=== PATIENT | female | born 1935 | race Caucasian/White ===

== ENCOUNTER 2017-08-02 17:15 | Inpatient (IN) | payer OTHER ==
[~2017-08-02] VITALS: Ht 152.4 cm; Wt 68.0 kg
[~2017-08-02 17:15] MED LIST: AMLO2.5T PO; APPLTAB PO; ASPEC325 PO; ATOR10TA88 PO; BNV150 PO; CETI10TA84 PO; CLB/200 PO; CLTP PO; CYCL10TA6 PO; DOCU-94 PO; DVN80125 PO; FLUO20CA35 PO; MAGN400T6 PO; MULT-506 PO; NXM/40 PO; OMEG10007 PO
[2017-08-02] MEDS ORDERED: SODIUM CHLORIDE 0.9% 1000ML 1,000 ML IV STA (17:38)
--- NOTE | 2017-08-02 17:45 | EMERGENCY ROOM VISIT NOTE ---
History Report prepared by Gera: El Hayden Under the Supervision of: Dr. Christina Read M.D. 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 She rates her pain a 9.5/10 in severity. At this time, the patient was at a family picnic when she accidentally tripped on a chair and fell onto a picnic table bench. She struck her left shoulder, left thigh, and her posterior head. She denies any loss of consciousness or weakness. Her pain is exacerbated with movement. She is currently on Coumadin. 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 Review of Systems See HPI for pertinent positives & negatives. A total of 10 systems reviewed and were otherwise negative. Past Medical & Surgical Medical Problems: (1) Asthma, Unspecified (2) Benign hypertension (3) Depression (4) Dyslipidemia (5) Gastroesophageal reflux disease (6) Generalized osteoarthritis (7) Hematoma (8) Rheumatoid Arthritis Surgical Problems: (1) History of cholecystectomy (2) s/p appendectomy (3) s/p back surgery (4) s/p bilateral carpal tunnel surgery (5) s/p bilateral rotator cuff surgeries (6) s/p bladder surgery (7) s/p cardiac catheterization (8) s/p cholecystectomy (9) s/p hysterectomy (10) s/p left TKA (11) s/p resection ovarian cyst (12) s/p revision right TKA (13) s/p right shoulder arthroplasty (14) s/p right TKA (15) s/p tonsillectomy Family History Omitted secondary to the patient's age. Social History Smoking Status: Never Smoker Smokeless Tobacco Use: No Alcohol Use: none Marital Status: Housing Status: lives with family Occupation Status: retired Current/Historical Medications Scheduled Amlodipine (Norvasc), 2.5 MG PO QAM Apple Cider Vinegar (Apple Cider Vinegar), 500 MG PO DAILY Brimonidine Tartrate (Brimonidine Tartrate), 1 DROP OPL BID Cetirizine (Zyrtec), 10 MG PO PRN Esomeprazole Magnesium (Nexium), 40 MG PO DAILY Fish Oil (Bryant-3), 2 CAPSULES PO DAILY Fluoxetine (Prozac), 20 MG PO DAILY Ibandronate Sodium (Boniva), 150 MG PO MONTHLY Latanoprost (Latanoprost), 1 DROP OPB HS Magnesium Oxide (Mag-Ox), 400 MG PO DAILY Multivitamin (Multivitamin), 1 TAB PO DAILY Turmeric (Curcuma Longa) (Turmeric), 500 MG PO BID Valsartan/Hctz (Diovan Hct 160MG/25MG), 1 TAB PO QAM Warfarin Sodium (Coumadin), 5 MG PO UD Allergies Coded Allergies: Meperidine (Verified Adverse Reaction, Mild, NAUSEA AND VOMITING, 08/02/17) No Known Allergies (Verified , 09/07/03) Physical Exam Vital Signs Date Time Temp Pulse Resp B/P (MAP) Pulse Ox O2 Delivery O2 Flow Rate FiO2 08/02/17 17:55 62 08/02/17 17:21 36.6 69 18 134/81 96 Room Air Physical Exam Vital signs reviewed. General: Well-appearing 81 yo female, in no significant distress. HEENT: No scleral icterus, PERRLA, neck supple. Atraumatic. Cardiovascular: Regular rate and rhythm, no extra sounds. Pulmonary: Clear to auscultation bilaterally, normal work of breathing. Abdomen: Soft, nontender, nondistended, positive bowel sounds. Musculoskeletal: Large hematoma to the left quadriceps region approximately 10 cm. Pain with ROM of the LUE. Full ROM of bilateral hips. Able to bend both knees. N/V intact distally to the bilateral LE's. Mild abrasion to the right knee. Cervical, thoracic and lumbar spine are palpated, nontender, no step-off or deformity appreciated. Neurologic: Patient awake alert and oriented x 3, full strength in all 4 extremities. Skin: Warm, dry, no rash. No significant abrasions/laceration. Medical Decision & Procedures ER Provider Diagnostic Interpretation: Radiology results as stated below per my review and radiologist interpretation: LEFT SHOULDER MIN 2 VIEWS ROUTINE HISTORY: 81 years-old Female L shoulder pain acute left shoulder pain status post fall. Initial exam. COMPARISON: Left shoulder radiographs 08/05/2013 TECHNIQUE: 3 views of the left shoulder. FINDINGS: Remote bone fragment inferior to the glenoid fossa is again seen, 2.9 x 0.9 cm suggesting a remote humeral fracture. Reverse total shoulder arthroplasty redemonstrated with chronic remodeling about the left shoulder. No evidence of hardware complication or periprosthetic fracture. No malalignment. Imaged lung schneider appear clear. IMPRESSION: 1. No acute fracture or dislocation. 2. Reverse total shoulder arthroplasty without complication. 3. Bone fragment inferior to the glenoid is unchanged from 08/05/2013 suggesting remote humeral fracture fragment. The above report was generated using voice recognition software. It may contain grammatical, syntax or spelling errors. Electronically signed by: Francisco Javier Mendoza M.D. 08/02/2017 7:34 PM Dictated Date/Time: 08/02/2017 7:31 PM LEFT FEMUR 2 VIEWS ROUTINE, LEFT HIP UNILATERAL 2 VIEWS HISTORY: 81 years-old Female L hematoma on Thigh hematoma of the left thigh. Acute left thigh soft tissue swelling status post fall. COMPARISON: CT left lower extremity of same day TECHNIQUE: 2 views of the left femur and 2 views of the left hip FINDINGS: HIP: Moderate left hip osteoarthritis. Remote left pubic ring fracture. No acute fracture or dislocation. FEMUR: Moderate osteoarthritis of the left hip. Enthesophyte noted superior to the greater tuberosity. Remote fracture deformity of the left pubic ring. Left hip arthroplasty with patellar resurfacing noted. No hardware complication is identified. The bones are mildly demineralized. IMPRESSION: 1. No acute fracture or dislocation of the left hip or femur. 2. Remote left pelvic ring fracture. 3. Left knee total joint arthroplasty noted without complication. The above report was generated using voice recognition software. It may contain grammatical, syntax or spelling errors. Electronically signed by: Francisco Javier Mendoza M.D. 08/02/2017 7:31 PM Dictated Date/Time: 08/02/2017 7:28 PM HEAD WITHOUT CONTRAST (CT) CLINICAL HISTORY: 81 years-old Female with CHI. Acute fall with left lower extremity pain. Acute trauma. Initial exam. TECHNIQUE: Multiple axial CT images of the head were obtained without contrast. A dose lowering technique was utilized adhering to the principles of ALARA. CT DOSE: 537.48 mGy.cm COMPARISON: None. FINDINGS: No acute intracranial hemorrhage, midline shift, mass, large territorial ischemia or abnormal extra-axial collection. There is mild atrophy with ex vacuo ventriculomegaly. Cerebral vascular calcifications are seen at the level of the skull base. The calvarium is intact. The paranasal sinuses, mastoid air cells, and middle ear cavities are clear. IMPRESSION: No acute intracranial abnormality. The above report was generated using voice recognition software. It may contain grammatical, syntax or spelling errors. Electronically signed by: Francisco Javier Mendoza M.D. 08/02/2017 7:01 PM Dictated Date/Time: 08/02/2017 6:58 PM LEFT FEMUR 2 VIEWS ROUTINE, LEFT HIP UNILATERAL 2 VIEWS HISTORY: 81 years-old Female L hematoma on Thigh hematoma of the left thigh. Acute left thigh soft tissue swelling status post fall. COMPARISON: CT left lower extremity of same day TECHNIQUE: 2 views of the left femur and 2 views of the left hip FINDINGS: HIP: Moderate left hip osteoarthritis. Remote left pubic ring fracture. No acute fracture or dislocation. FEMUR: Moderate osteoarthritis of the left hip. Enthesophyte noted superior to the greater tuberosity. Remote fracture deformity of the left pubic ring. Left hip arthroplasty with patellar resurfacing noted. No hardware complication is identified. The bones are mildly demineralized. IMPRESSION: 1. No acute fracture or dislocation of the left hip or femur. 2. Remote left pelvic ring fracture. 3. Left knee total joint arthroplasty noted without complication. The above report was generated using voice recognition software. It may contain grammatical, syntax or spelling errors. Electronically signed by: Francisco Javier Mendoza M.D. 08/02/2017 7:31 PM Dictated Date/Time: 08/02/2017 7:28 PM CHEST ONE VIEW PORTABLE HISTORY: 81 years-old Female fall acute left shoulder and left lower extremity pain status post fall. Initial study. COMPARISON: Chest radiograph 01/29/2012 TECHNIQUE: Portable upright AP view of the chest FINDINGS: Cardiac silhouette is upper limits of normal. No pneumothorax, pleural effusion or focal airspace consolidation. No overt pulmonary edema. 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 Multilevel general changes about the spine. No acute bony normality. Remote left-sided rib fractures are seen. IMPRESSION: No acute cardiopulmonary process. The above report was generated using voice recognition software. It may contain grammatical, syntax or spelling errors. Electronically signed by: Francisco Javier Mendoza M.D. 08/02/2017 7:36 PM Dictated Date/Time: 08/02/2017 7:34 PM LEFT LOWER EXTREMITY WITH HISTORY: 81 years-old Female L thigh hematoma, active bleed? INR 1.7 acute fall with left lower extremity injury. Hematoma of the left thigh with concern for active extravasation. Initial exam. COMPARISON: None available. TECHNIQUE: Multiple axial CT images of the left lower extremity were obtained utilizing 92 mL Optiray 320. A dose lowering technique was used consistent with the principals of MINI. FINDINGS: There is a dense heterogeneous collection of the anterolateral left mid thigh, 6.9 x 3.5 x 9.2 cm suggesting hematoma within the deep subcutaneous tissues causing mass effect upon the adjacent rectus femoris and lateral rectus musculature. Along the superior margin of this collection there is a 1.7 x 0.6 cm hyperattenuating area of contrast compatible with active extravasation (nicely seen on image 168 of the axial series). Moderate degree of subcutaneous edema and stranding is seen surrounding the hematoma. No intramuscular extension is identified. The left common and superficial femoral and popliteal arteries appear patent as imaged. Sigmoid diverticulosis is seen. Probable phleboliths are noted within left hemipelvis. Nonspecific likely reactive mild left inguinal adenopathy is seen. Intramedullary femoral stem from knee arthroplasty noted. There is evidence of prior patellar resurfacing. The left femur appears intact without acute fracture or dislocation. There is a suggested remote left superior pubic ramus fracture. There is mild spurring of the greater tuberosity. There is moderate degenerative changes of the left hip. IMPRESSION: 1. Large complex heterogeneous collection of the subcutaneous anterolateral mid left thigh, 6.9 x 3.5 x 9.2 cm suggests hematoma with focus of active extravasation seen along its superior margin. Moderate amount of adjacent subcutaneous edema surrounds the hematoma. No intramuscular extension. 2. No acute fracture or dislocation. 3. Moderate left hip osteoarthritis. 4. Sigmoid diverticulosis incidentally noted. The above report was generated using voice recognition software. It may contain grammatical, syntax or spelling errors. Electronically signed by: Francisco Javier Mendoza M.D. 08/02/2017 7:09 PM Dictated Date/Time: 08/02/2017 7:01 PM Laboratory Results 08/02/17 17:53 Red Blood Count 3.98, Mean Corpuscular Volume 92.5, Mean Corpuscular Hemoglobin 32.7, Mean Corpuscular Hemoglobin Concent 35.3, Mean Platelet Volume 9.9, Neutrophils (%) (Auto) 83.9, Lymphocytes (%) (Auto) 10.1, Monocytes (%) (Auto) 4.7, Eosinophils (%) (Auto) 0.9, Basophils (%) (Auto) 0.2, Neutrophils # (Auto) 7.14, Lymphocytes # (Auto) 0.86, Monocytes # (Auto) 0.40, Eosinophils # (Auto) 0.08, Basophils # (Auto) 0.02 08/02/17 17:53 Test 08/02/17 17:53 08/02/17 19:40 White Blood Count 8.52 K/uL (4.8-10.8) Red Blood Count 3.98 M/uL (4.2-5.4) Hemoglobin 13.0 g/dL (12.0-16.0) Hematocrit 36.8 % (37-47) Mean Corpuscular Volume 92.5 fL (80-100) Mean Corpuscular Hemoglobin 32.7 pg (25-34) Mean Corpuscular Hemoglobin Concent 35.3 g/dl (32-36) Platelet Count 256 K/uL (130-400) Mean Platelet Volume 9.9 fL (7.4-10.4) Neutrophils (%) (Auto) 83.9 % Lymphocytes (%) (Auto) 10.1 % Monocytes (%) (Auto) 4.7 % Eosinophils (%) (Auto) 0.9 % Basophils (%) (Auto) 0.2 % Neutrophils # (Auto) 7.14 K/uL (1.4-6.5) Lymphocytes # (Auto) 0.86 K/uL (1.2-3.4) Monocytes # (Auto) 0.40 K/uL (0.11-0.59) Eosinophils # (Auto) 0.08 K/uL (0-0.5) Basophils # (Auto) 0.02 K/uL (0-0.2) RDW Standard Deviation 48.2 fL (36.4-46.3) RDW Coefficient of Variation 14.1 % (11.5-14.5) Immature Granulocyte % (Auto) 0.2 % Immature Granulocyte # (Auto) 0.02 K/uL (0.00-0.02) Prothrombin Time 19.1 SECONDS (9.0-12.0) Prothromb Time International Ratio 1.7 (0.9-1.1) Activated Partial Thromboplast Time 31.8 SECONDS (21.0-31.0) Partial Thromboplastin Ratio 1.2 Anion Gap 6.0 mmol/L (3-11) Est Creatinine Clear Calc Drug Dose 51.6 ml/min Estimated GFR () 86.5 Estimated GFR (Non- 74.6 BUN/Creatinine Ratio 26.6 (10-20) Calcium Level 9.3 mg/dl (8.5-10.1) Magnesium Level 2.2 mg/dl (1.8-2.4) Total Bilirubin 0.3 mg/dl (0.2-1) Direct Bilirubin < 0.1 mg/dl (0-0.2) Aspartate Amino Transf (AST/SGOT) 22 U/L (15-37) Alanine Aminotransferase (ALT/SGPT) 19 U/L (12-78) Alkaline Phosphatase 38 U/L (45-117) Total Protein 6.7 gm/dl (6.4-8.2) Albumin 3.6 gm/dl (3.4-5.0) Thyroid Stimulating Hormone (TSH) 0.848 uIu/ml (0.300-4.500) Urine Color YELLOW Urine Appearance CLEAR (CLEAR) Urine pH 7.0 (4.5-7.5) Urine Specific [employer] 1.026 (1.000-1.030) Urine Protein NEG (NEG) Urine Glucose (UA) NEG (NEG) Urine Ketones NEG (NEG) Urine Occult Blood NEG (NEG) Urine Nitrite NEG (NEG) Urine Bilirubin NEG (NEG) Urine Urobilinogen NEG (NEG) Urine Leukocyte Esterase NEG (NEG) Laboratory results per my review. Medications Administered Medications (Trade) Dose Ordered Sig/Marc Route Start Time Stop Time Status Last Admin Dose Admin Sodium Chloride 1,000 ml @ 150 mls/hr [id number] STAT IV 08/02/17 17:38 08/02/17 20:57 DC 08/02/17 18:06 150 MLS/HR Morphine Sulfate (MoRPHine SULFATE INJ) 2 mg NOW STAT IV 08/02/17 20:00 08/02/17 20:01 DC 08/02/17 20:07 2 MG Ondansetron HCl (Zofran Inj) 4 mg NOW STAT IV 08/02/17 20:00 08/02/17 20:01 DC 08/02/17 20:07 4 MG Phytonadione 2.5 mg/Sodium Chloride 50.25 ml @ 100.5 mls/ hr ONE ONCE IV 08/02/17 20:15 08/02/17 20:44 DC 08/02/17 20:51 100.5 MLS/HR ECG Indication: other (Trauma) Rate (beats per minute): 65 Rhythm: normal sinus Findings: no acute ischemic change, no ectopy ED Course 1730: Past medical records reviewed. The patient was evaluated in room C1. A complete history and physical examination was performed. 1737: Ordered Sodium Chloride 1000 ml @ 150 mls/hr IV 1933: I spoke with Dr. Arrieta of Vascular Surgery at this time. We discussed the patient's case. He recommended placing a compression dressing and being treated further as an inpatient. 1999: Ordered Zofran Inj 4 mg IV, Morphine Sulfate 2 mg IV 2001: Upon reevaluation, the patient is resting comfortably. I discussed laboratory and radiographic results with her. She verbalized agreement of the treatment plan. I spoke with Dr. Yuan of the [facility]. The patient will be evaluated for further management and care. 2015: Ordered Phytonadione 2.5 mg/Sodium Chloride 50.25 ml @ 100.5 mls/hr IV Medical Decision DDx: Intracranial injury, cervical spine injury, intrathoracic injury, intra- abdominal injury, musculoskeletal injury. This patient was evaluated and appeared to be in no significant distress. IV access was obtained and laboratory work was drawn. The patient was medicated with IV morphine and Zofran. Ice was applied to the left thigh hematoma. Patient was hydrated with normal saline solution. X-rays were obtained and reveal no acute bony injuries or dislocations. CT scan of the left thigh was performed and reveals a hematoma with active extravasation. Patient's H&H is stable with an INR of 1.7. She was given vitamin K 2.[address] scan of the head reveals no evidence of acute intracranial abnormality. Given the active bleeding, Dr. Arrieta of vascular surgery was consulted. He has recommended a compression dressing. Given her age and anticoagulation, the hospitalist service was consulted for further management. The patient and family felt comfortable with this plan and agree. Head Trauma GCS Score: 15 Medication Reconcilliation Current Medication List: was personally reviewed by me Blood Pressure Screening Patient's blood pressure: Normal blood pressure Blood pressure disposition: Did not require urgent referral Consults Time Called: 1929 Consulting Physician: Dr. Arrieta - Vascular Surgery Returned Call: 1933 We discussed the patient's case. He recommended a compression dressing and further treatment as an inpatient. Additional Consults: Time Called: 1999 Consulted Physician: Dr. Lissy Daigle Hospitalist Returned Call: 2001 Additional Comments: I reviewed the patient's case with him. He will evaluate the patient for further management. Impression Primary Impression: Hematoma of left thigh Additional Impressions: Extravasation of blood Anticoagulated Scribe Attestation The scribe's documentation has been prepared under my direction and personally reviewed by me in its entirety. I confirm that the note above accurately reflects all work, treatment, procedures, and medical decision making performed by me. Departure Information Dispostion Being Evaluated By Hospitalist Referrals No Doctor, Assigned (PCP) Patient Instructions My [facility] Problem Qualifiers
[2017-08-02] MEDS ORDERED: TURM1CAP4 PO (18:06)
[2017-08-02] MEDS ORDERED: IBAN150T PO (18:06)
[2017-08-02] MEDS ORDERED: XLTOPS OPB (18:06)
[2017-08-02] MEDS ORDERED: BRIM0.159 OPL (18:06)
[2017-08-02] MEDS ORDERED: WARF5TAB90 PO (18:06)
[2017-08-02] MEDS ORDERED: VALS160T60 PO (18:06)
[2017-08-02 18:07] LABS: BASO % 0.2 %; BASO ABS # 0.02 K/uL (0-0.2); COMPLETE YES; EOS % 0.9 %; HEMATOCRIT 36.8 % (37-47); IG% 0.2 %; LYMPH % 10.1 %; LYMPH ABS # 0.86 K/uL (1.2-3.4); MEAN CELL VOLUME 92.5 fL (80-100); MEAN CORPUSCULAR HEMOGLOBIN 32.7 pg (25-34); MEAN CORPUSCULAR HGB CONC 35.3 g/dl (32-36); MEAN PLATELET VOLUME 9.9 fL (7.4-10.4); MONO % 4.7 %; NEUT % 83.9 %; PLATELET COUNT 256 K/uL (130-400); RED BLOOD COUNT 3.98 M/uL (4.2-5.4); WHITE BLOOD COUNT 8.52 K/uL (4.8-10.8)
[2017-08-02 18:15] LABS: INR 1.7 (0.9-1.1); PARTIAL THROMBOPLASTIN RATIO 1.2; PROTHROMBIN TIME (PATIENT) 19.1 SECONDS (9.0-12.0)
[2017-08-02 18:30] LABS: ALKALINE PHOSPHATASE 38 U/L (45-117); ALT/SGPT 19 U/L (12-78); AST/SGOT 22 U/L (15-37); BLOOD UREA NITROGEN 20 mg/dl (7-18); BUN/CREATININE RATIO 26.6 (10-20); CALCIUM 9.3 mg/dl (8.5-10.1); CARBON DIOXIDE 30 mmol/L (21-32); CHLORIDE 99 mmol/L (98-107); CREATININE 0.76 mg/dl (0.60-1.20); GLUCOSE 112 mg/dl (70-99); POTASSIUM 3.8 mmol/L (3.5-5.1); SODIUM 135 mmol/L (136-145)
[2017-08-02] MEDS ORDERED: OPTIRAY 320 IV PRN (19:00)
--- NOTE | 2017-08-02 19:02 | DIAGNOSTIC IMAGING REPORT ---
HEAD WITHOUT CONTRAST (CT) CLINICAL HISTORY: 81 years-old Female with CHI. Acute fall with left lower extremity pain. Acute trauma. Initial exam. TECHNIQUE: Multiple axial CT images of the head were obtained without contrast. A dose lowering technique was utilized adhering to the principles of ALARA. CT DOSE: 537.48 mGy.cm COMPARISON: None. FINDINGS: No acute intracranial hemorrhage, midline shift, mass, large territorial ischemia or abnormal extra-axial collection. There is mild atrophy with ex vacuo ventriculomegaly. Cerebral vascular calcifications are seen at the level of the skull base. The calvarium is intact. The paranasal sinuses, mastoid air cells, and middle ear cavities are clear. IMPRESSION: No acute intracranial abnormality. The above report was generated using voice recognition software. It may contain grammatical, syntax or spelling errors. Electronically signed by: Francisco Javier Mendoza M.D. 08/02/2017 7:01 PM Dictated Date/Time: 08/02/2017 6:58 PM
--- NOTE | 2017-08-02 19:10 | DIAGNOSTIC IMAGING REPORT ---
LEFT LOWER EXTREMITY WITH HISTORY: 81 years-old Female L thigh hematoma, active bleed? INR 1.7 acute fall with left lower extremity injury. Hematoma of the left thigh with concern for active extravasation. Initial exam. COMPARISON: None available. TECHNIQUE: Multiple axial CT images of the left lower extremity were obtained utilizing 92 mL Optiray 320. A dose lowering technique was used consistent with the principals of MINI. FINDINGS: There is a dense heterogeneous collection of the anterolateral left mid thigh, 6.9 x 3.5 x 9.2 cm suggesting hematoma within the deep subcutaneous tissues causing mass effect upon the adjacent rectus femoris and lateral rectus musculature. Along the superior margin of this collection there is a 1.7 x 0.6 cm hyperattenuating area of contrast compatible with active extravasation (nicely seen on image 168 of the axial series). Moderate degree of subcutaneous edema and stranding is seen surrounding the hematoma. No intramuscular extension is identified. The left common and superficial femoral and popliteal arteries appear patent as imaged. Sigmoid diverticulosis is seen. Probable phleboliths are noted within left hemipelvis. Nonspecific likely reactive mild left inguinal adenopathy is seen. Intramedullary femoral stem from knee arthroplasty noted. There is evidence of prior patellar resurfacing. The left femur appears intact without acute fracture or dislocation. There is a suggested remote left superior pubic ramus fracture. There is mild spurring of the greater tuberosity. There is moderate degenerative changes of the left hip. IMPRESSION: 1. Large complex heterogeneous collection of the subcutaneous anterolateral mid left thigh, 6.9 x 3.5 x 9.2 cm suggests hematoma with focus of active extravasation seen along its superior margin. Moderate amount of adjacent subcutaneous edema surrounds the hematoma. No intramuscular extension. 2. No acute fracture or dislocation. 3. Moderate left hip osteoarthritis. 4. Sigmoid diverticulosis incidentally noted. The above report was generated using voice recognition software. It may contain grammatical, syntax or spelling errors. Electronically signed by: Francisco Javier Mendoza M.D. 08/02/2017 7:09 PM Dictated Date/Time: 08/02/2017 7:01 PM
--- NOTE | 2017-08-02 19:32 | DIAGNOSTIC IMAGING REPORT ---
LEFT FEMUR 2 VIEWS ROUTINE, LEFT HIP UNILATERAL 2 VIEWS HISTORY: 81 years-old Female L hematoma on Thigh hematoma of the left thigh. Acute left thigh soft tissue swelling status post fall. COMPARISON: CT left lower extremity of same day TECHNIQUE: 2 views of the left femur and 2 views of the left hip FINDINGS: HIP: Moderate left hip osteoarthritis. Remote left pubic ring fracture. No acute fracture or dislocation. FEMUR: Moderate osteoarthritis of the left hip. Enthesophyte noted superior to the greater tuberosity. Remote fracture deformity of the left pubic ring. Left hip arthroplasty with patellar resurfacing noted. No hardware complication is identified. The bones are mildly demineralized. IMPRESSION: 1. No acute fracture or dislocation of the left hip or femur. 2. Remote left pelvic ring fracture. 3. Left knee total joint arthroplasty noted without complication. The above report was generated using voice recognition software. It may contain grammatical, syntax or spelling errors. Electronically signed by: Francisco Javier Mendoza M.D. 08/02/2017 7:31 PM Dictated Date/Time: 08/02/2017 7:28 PM
--- NOTE | 2017-08-02 19:35 | DIAGNOSTIC IMAGING REPORT ---
LEFT SHOULDER MIN 2 VIEWS ROUTINE HISTORY: 81 years-old Female L shoulder pain acute left shoulder pain status post fall. Initial exam. COMPARISON: Left shoulder radiographs 08/05/2013 TECHNIQUE: 3 views of the left shoulder. FINDINGS: Remote bone fragment inferior to the glenoid fossa is again seen, 2.9 x 0.9 cm suggesting a remote humeral fracture. Reverse total shoulder arthroplasty redemonstrated with chronic remodeling about the left shoulder. No evidence of hardware complication or periprosthetic fracture. No malalignment. Imaged lung schneider appear clear. IMPRESSION: 1. No acute fracture or dislocation. 2. Reverse total shoulder arthroplasty without complication. 3. Bone fragment inferior to the glenoid is unchanged from 08/05/2013 suggesting remote humeral fracture fragment. The above report was generated using voice recognition software. It may contain grammatical, syntax or spelling errors. Electronically signed by: Francisco Javier Mendoza M.D. 08/02/2017 7:34 PM Dictated Date/Time: 08/02/2017 7:31 PM
--- NOTE | 2017-08-02 19:37 | DIAGNOSTIC IMAGING REPORT ---
CHEST ONE VIEW PORTABLE HISTORY: 81 years-old Female fall acute left shoulder and left lower extremity pain status post fall. Initial study. COMPARISON: Chest radiograph 01/29/2012 TECHNIQUE: Portable upright AP view of the chest FINDINGS: Cardiac silhouette is upper limits of normal. No pneumothorax, pleural effusion or focal airspace consolidation. No overt pulmonary edema. 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 Multilevel general changes about the spine. No acute bony normality. Remote left-sided rib fractures are seen. IMPRESSION: No acute cardiopulmonary process. The above report was generated using voice recognition software. It may contain grammatical, syntax or spelling errors. Electronically signed by: Francisco Javier Mendoza M.D. 08/02/2017 7:36 PM Dictated Date/Time: 08/02/2017 7:34 PM
[2017-08-02 19:51] LABS: MANUAL MICROSCOPIC REQUIRED? NO; REVIEW REQ? NO; URINE APPEARANCE CLEAR (CLEAR); URINE BILIRUBIN NEG (NEG); URINE COLOR YELLOW; URINE NITRITE NEG (NEG); URINE SPECIFIC GRAVITY 1.026 (1.000-1.030); UROBILINOGEN NEG (NEG); ZZUR CULT IF INDIC CLEAN CATCH NO
[2017-08-02] MEDS ORDERED: ONDANSETRON INJ 2 MG/ML 2 ML VIAL IV STA (20:00)
[2017-08-02] MEDS ORDERED: MoRPHine SULFATE 2 MG/ML CARP IV STA (20:00)
[2017-08-02] MEDS ORDERED: PHYTONADIONE INJ 2.5 MG in SODIUM CHLORIDE 0.9% 50ML 50 ML IV ONE (20:15)
[2017-08-02 20:39] LABS: MAGNESIUM 2.2 mg/dl (1.8-2.4); THYROID STIMULATING HORMONE 0.848 uIu/ml (0.300-4.500)
[2017-08-02] MEDS ORDERED: ONDANSETRON INJ 2 MG/ML 2 ML VIAL IV PRN (21:00)
[2017-08-02] MEDS ORDERED: HYDROmorphone INJ 0.5 MG/0.5 ML SYR IV PRN (21:00)
[2017-08-02] MEDS ORDERED: ACETAMINOPHEN 325 MG TAB PO PRN (21:00)
[2017-08-02] MEDS: BRIMONIDINE TARTRATE-P 0.15% 5 ML BTL OPL SCH (21:00)
[2017-08-02 21:30] VITALS: BP 167/91; PULSE 64; TEMP 36.5; O2SAT 97; Ht 152.4 cm; Wt 68.0 kg
[2017-08-02 21:31] LABS: HEMATOCRIT 33.6 % (37-47)
[2017-08-02] MEDS: LATANOPROST 0.005% OP SOLN 2.5 ML BTL OPB SCH (22:17)
[2017-08-02] MEDS: TRAMADOL HCL 50 MG TAB PO PRN (22:21)
[2017-08-02 23:18] VITALS: BP 138/83; PULSE 59; TEMP 36.4; O2SAT 97
--- NOTE | 2017-08-02 23:39 | HISTORY & PHYSICAL EXAMINATION ---
DATE OF ADMISSION: 08/02/2017 PRIMARY CARE PHYSICIAN: Amber Villa PA-C, [facility] [place]. CHIEF COMPLAINT: Fall, left leg pain. HISTORY OF PRESENT ILLNESS: History obtained from patient and records. Medical history significant for paroxysmal atrial fibrillation, on Coumadin, hypertension, hyperlipidemia, GERD, arthritis. Recent confinement under Orthopedics service last 02/2012 for a left shoulder surgery. Today, the patient was at a family picnic, had a mechanical fall landing on her left side. Achy, left shoulder pain and left leg pain painful swelling. Some posterior head trauma. No loss of consciousness. As per family, the patient known to fall at home if she moves too fast. Brought to the Emergency Room. Patient received vitamin K in the ER. MEDICAL HISTORY: As above. 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 Kevin Aguilar) SURGERIES: She has had orthopedic procedures, hysterectomy, repair of bladder and vagina, tonsillectomy, adenoidectomy, back surgery, cholecystectomy. HOME MEDICATIONS: Include amlodipine, Coumadin, fluoxetine, valsartan, ibandronate, esomeprazole, brimonidine, turmeric, acetaminophen, multivitamins, apple cider, latanoprost, cetirizine. ALLERGIES: No known drug allergies. FAMILY HISTORY: There is a family history of carcinoid tumor, heart disease, SLE, diabetes, breast cancer. PERSONAL AND SOCIAL HISTORY: Nonsmoker, no chronic intake of alcoholic beverages. 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 Lives with her . REVIEW OF SYSTEMS: As per HPI, all other ROS negative. PHYSICAL EXAMINATION: VITAL SIGNS: Blood pressure was noted to be 134/85, pulse 86, RR 18, temperature 36.6, sats 96% on room air. GENERAL: Pleasant, no respiratory distress. SKIN: Normal color. HEENT: [place] palpebral conjunctivae. Dry mucosa. NECK: No JVD. Supple. CHEST: Decreased breath sounds. HEART: Regular rate and rhythm. ABDOMEN: Soft. EXTREMITIES: Tenderness on the left upper thigh; note of compressive dressing; Left shoulder ROM limited by pain NEUROLOGIC: No gross focality. LABORATORY DATA: Hemoglobin was noted to be 13, hematocrit 36.8, white cell count 8.5, platelets noted to be 256. Sodium noted to be 135, potassium 3.8, chloride 99, CO2 of 33, BUN 20, creatinine 0.7, glucose 112. INR was noted to be 1.7. L Shoulder x-ray, no acute fracture or dislocation. Reverse total shoulder arthroscopy done without complication. Unchanged bone fragment adhered to glenoid from 08/05/2013. CT head, no acute pathology. Chest x-ray, no acute cardiopulmonary process. Lower extremity CT, dense collection anterolateral left mid thigh, 6.9 x 3.5 x 9 cm hematoma within deep subcutaneous tissue causing mass effect upon adjacent rectus femoris musculature. Moderate degree of subcutaneous stranding. No intramuscular extension noted; focus of active extravasation along its superior margin. ASSESSMENT: 1. Traumatic hematoma, left thigh. Currently hemodynamically stable. History of ambulatory dysfunction. 2. Traumatic left shoulder pain 3. Hypertension. Stable 4. Paroxysmal atrial fibrillation, normal sinus rhythm, on Coumadin. PLAN: GMF appropriate to hold Coumadin for now. Serial H&H, transfuse packed RBC if hemoglobin less than 7 and or symptomatic anemia Orthopedics consult RE L thigh swelling, hematoma, left shoulder pain. (Patient known to Dr. Soliman.) PT/OT eval. Fall precautions. DVT prophylaxis, SCDs, RE hematoma left lower extremity. Full code. Patient's daughter requesting for updates from providers, Miss Alicia Fuentes at [phone]. [facility]
[2017-08-03] MEDS: OXYCODONE/ACETAMINOPHEN 5-325 TAB PO PRN ×3 (01:13→16:41)
[2017-08-03 05:48] LABS: BASO % 0.7 %; BASO ABS # 0.03 K/uL (0-0.2); COMPLETE YES; EOS % 2.4 %; HEMATOCRIT 33.4 % (37-47); IG% 0.2 %; LYMPH % 18.2 %; LYMPH ABS # 0.83 K/uL (1.2-3.4); MEAN CELL VOLUME 92.3 fL (80-100); MEAN CORPUSCULAR HEMOGLOBIN 30.4 pg (25-34); MEAN CORPUSCULAR HGB CONC 32.9 g/dl (32-36); MEAN PLATELET VOLUME 10.1 fL (7.4-10.4); MONO % 8.6 %; NEUT % 69.9 %; PLATELET COUNT 221 K/uL (130-400); RED BLOOD COUNT 3.62 M/uL (4.2-5.4); WHITE BLOOD COUNT 4.56 K/uL (4.8-10.8)
[2017-08-03 05:58] LABS: INR 1.3 (0.9-1.1); PROTHROMBIN TIME (PATIENT) 14.6 SECONDS (9.0-12.0)
[2017-08-03 06:16] LABS: BUN/CREATININE RATIO 31.3 (10-20); CALCIUM 8.1 mg/dl (8.5-10.1); CREATININE 0.51 mg/dl (0.60-1.20); POTASSIUM 3.6 mmol/L (3.5-5.1)
[2017-08-03] MEDS: TRAMADOL HCL 50 MG TAB PO PRN ×2 (06:39→21:29)
[2017-08-03 07:41] VITALS: BP 116/63; PULSE 65; TEMP 36.5; O2SAT 96
[2017-08-03] MEDS ORDERED: CETIRIZINE HCL 10 MG TAB PO PRN (09:00)
[2017-08-03] MEDS: BRIMONIDINE TARTRATE-P 0.15% 5 ML BTL OPL SCH ×2 (09:13→21:26)
[2017-08-03] MEDS: FLUOXETINE HCL 20 MG CAP PO SCH (09:14)
[2017-08-03] MEDS: VALSARTAN 80 MG TAB PO SCH (09:15)
[2017-08-03] MEDS: AMLODIPINE BESYLATE 5 MG TAB PO SCH (09:15)
[2017-08-03] MEDS: MULTIVITAMIN TAB PO SCH (09:16)
[2017-08-03] MEDS: PANTOprazole SOD 40 MG TAB PO SCH (09:16)
--- NOTE | 2017-08-03 09:57 | Orthopedic Progress Note ---
Orthopedic Progress Note Date of Service Aug 03, 2017. Subjective Additional Notes: 81-year-old white female known to our practice who is status post left reverse total shoulder arthroplasty by Dr. Soliman in 2011. Patient states that she was out and their picnic [place] over the holiday. She was sitting at a picnic table when she saw a few of her granddaughters. She states that she rest to go see them ended up losing her balance and falling onto the picnic table itself and then to the ground. She had immediate pain in her left shoulder and also in her left thigh she was brought to the emergency room here at [facility] was seen by the staff. She was noted as having a hematoma of the left anterior thigh and was having difficulty with range of motion of her left shoulder. Patient is on Coumadin for atrial fibrillation and INR was 1.7. She was admitted to the medicine service for further evaluation. The patient states that she did not have loss of consciousness and denies shortness of breath chest pain or lightheadedness prior to or after the fall. Currently she is lying in bed and appears comfortable. PMH - significant for paroxysmal atrial fibrillation, on Coumadin, hypertension, hyperlipidemia, reflux, arthritis. PSH - She has had right and left TSA's, Left TKA with revision, Right TKA with revision, Left foot surgery, hysterectomy, repair of bladder and vagina, tonsillectomy, adenoidectomy, back surgery, cholecystectomy , Cataract Surgery Objective On exam, the patient is sitting up in bed and appears comfortable. She states that her pain is controlled at rest. On examination of the left lower extremity , she has a moderate hematoma over the left anterior thigh that is firm to the touch. She has discomfort with deep palpation to but not light palpation. She has ecchymosis noted over this area that travels laterally to posterior. She is currently able to do straight leg raise with minimal discomfort. Passive internal and external rotation are essentially benign. Flexion of the hip at this time with flexion of the knee does cause her some discomfort in that area of hematoma. Passive Adduction and abduction are benign. She denies any numbness or tingling or shooting pains down into the left foot. Left knee range of motion is benign as well as left ankle and toes. On examination of the left shoulder, she has well-healed incision from previous surgery. She has mild tenderness on palpation and mild swelling of the shoulder. No ecchymosis noted. Active range of motion is limited at this time with forward flexion to about 45, abduction to approximately 45 as well. External rotation to approximately 30 with some discomfort. Internal rotation has some discomfort but she is essentially within normal limits with internal rotation. Passive forward flexion I can almost get her to 80. 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 She does have obvious weakness in the left shoulder compared to the right. Date Time Temp Pulse Resp B/P (MAP) Pulse Ox O2 Delivery O2 Flow Rate FiO2 08/03/17 07:41 36.5 65 18 116/63 (80) 96 Room Air 08/03/17 00:00 Room Air 08/02/17 23:18 36.4 59 16 138/83 (101) 97 Room Air 08/02/17 21:30 36.5 64 18 167/91 97 Room Air 08/02/17 21:30 36.5 64 18 167/91 (116) 97 Room Air 08/02/17 21:06 77 18 111/80 98 08/02/17 20:26 74 18 112/73 97 08/02/17 17:55 62 08/02/17 17:21 36.6 69 18 134/81 96 Room Air Laboratory Results 24 Hours: Test 08/02/17 17:53 08/02/17 21:22 08/03/17 05:22 White Blood Count 8.52 K/uL 4.56 K/uL Red Blood Count 3.98 M/uL 3.62 M/uL Hemoglobin 13.0 g/dL 11.4 g/dL 11.0 g/dL Hematocrit 36.8 % 33.6 % 33.4 % Mean Corpuscular Volume 92.5 fL 92.3 fL Mean Corpuscular Hemoglobin 32.7 pg 30.4 pg Mean Corpuscular Hemoglobin Concent 35.3 g/dl 32.9 g/dl Platelet Count 256 K/uL 221 K/uL Mean Platelet Volume 9.9 fL 10.1 fL Neutrophils (%) (Auto) 83.9 % 69.9 % Lymphocytes (%) (Auto) 10.1 % 18.2 % Monocytes (%) (Auto) 4.7 % 8.6 % Eosinophils (%) (Auto) 0.9 % 2.4 % Basophils (%) (Auto) 0.2 % 0.7 % Neutrophils # (Auto) 7.14 K/uL 3.19 K/uL Lymphocytes # (Auto) 0.86 K/uL 0.83 K/uL Monocytes # (Auto) 0.40 K/uL 0.39 K/uL Eosinophils # (Auto) 0.08 K/uL 0.11 K/uL Basophils # (Auto) 0.02 K/uL 0.03 K/uL Prothromb Time International Ratio 1.7 1.3 Prothrombin Time 19.1 SECONDS 14.6 SECONDS Additional Notes: LEFT LOWER EXTREMITY WITH HISTORY: 81 years-old Female L thigh hematoma, active bleed? INR 1.7 acute fall with left lower extremity injury. Hematoma of the left thigh with concern for active extravasation. Initial exam. COMPARISON: None available. TECHNIQUE: Multiple axial CT images of the left lower extremity were obtained utilizing 92 mL Optiray 320. A dose lowering technique was used consistent with the principals of [place]. FINDINGS: There is a dense heterogeneous collection of the anterolateral left mid thigh, 6.9 x 3.5 x 9.2 cm suggesting hematoma within the deep subcutaneous tissues causing mass effect upon the adjacent rectus femoris and lateral rectus musculature. Along the superior margin of this collection there is a 1.7 x 0.6 cm hyperattenuating area of contrast compatible with active extravasation (nicely seen on image 168 of the axial series). Moderate degree of subcutaneous edema and stranding is seen surrounding the hematoma. No intramuscular extension is identified. The left common and superficial femoral and popliteal arteries appear patent as imaged. Sigmoid diverticulosis is seen. Probable phleboliths are noted within left hemipelvis. Nonspecific likely reactive mild left inguinal adenopathy is seen. Intramedullary femoral stem from knee arthroplasty noted. There is evidence of prior patellar resurfacing. The left femur appears intact without acute fracture or dislocation. There is a suggested remote left superior pubic ramus fracture. There is mild spurring of the greater tuberosity. There is moderate degenerative changes of the left hip. IMPRESSION: 1. Large complex heterogeneous collection of the subcutaneous anterolateral mid left thigh, 6.9 x 3.5 x 9.2 cm suggests hematoma with focus of active extravasation seen along its superior margin. Moderate amount of adjacent subcutaneous edema surrounds the hematoma. No intramuscular extension. 2. No acute fracture or dislocation. 3. Moderate left hip osteoarthritis. 4. Sigmoid diverticulosis incidentally noted. LEFT SHOULDER MIN 2 VIEWS ROUTINE HISTORY: 81 years-old Female L shoulder pain acute left shoulder pain status post fall. Initial exam. COMPARISON: Left shoulder radiographs 08/05/2013 TECHNIQUE: 3 views of the left shoulder. FINDINGS: Remote bone fragment inferior to the glenoid fossa is again seen, 2.9 x 0.9 cm suggesting a remote humeral fracture. Reverse total shoulder arthroplasty redemonstrated with chronic remodeling about the left shoulder. No evidence of hardware complication or periprosthetic fracture. No malalignment. Imaged lung schneider appear clear. IMPRESSION: 1. No acute fracture or dislocation. 2. Reverse total shoulder arthroplasty without complication. 3. Bone fragment inferior to the glenoid is unchanged from 08/05/2013 suggesting remote humeral fracture fragment. Assessment & Plan Assessment: Hematoma Left Thigh; Left Shoulder Pain s/p Fall on chronic Coumadin Therapy. Plan: Patient's INR this morning is down to 1.3. Initially, we will plan for ice to the left hematoma; ice as needed to the left shoulder. She can be up to the bathroom or ambulating short distances in the room itself with assistance. We will need to make sure that the hematoma is not enlarging and if not, we get started on physical therapy, weightbearing as tolerated with assistive devices as needed. The patient states that she's been able to get to the bathroom with almost full weight-bearing status without much difficulty. With her remaining comfortable at rest with most of her pain with activity, I don't feel that the hematoma will need evacuated unless it continues to enlarge. I will discuss the case further with Dr. Leon is here today. We may be able to start her on physical therapy protocol later this afternoon. I discussed the case with Dr. Soliman's office since he had performed her L TSA , and after reviewing films from this admission and a previous office visit, there is no difference noted in the films from this admission compared to when last seen in the office.
--- NOTE | 2017-08-03 15:06 | Progress Note ---
Medicine Progress Note Date & Time of Visit: Aug 03, 2017 at 14:36. Subjective 81 yo F on coumadin for atrial fibrillation who presents with an acute leg hematoma after mechanical fall. pain is controlled no BM since yesterday tolerating PO denies F/C, chest pain, SOB Objective Last 8 Hrs Date Time Temp Pulse Resp B/P (MAP) Pulse Ox O2 Delivery O2 Flow Rate FiO2 08/03/17 07:45 Room Air 08/03/17 07:41 36.5 65 18 116/63 (80) 96 Room Air Physical Exam: GEN: WNWD, in no acute distress, alert and appropriate HEENT: NC/AT, pupils are equal and round bilaterally, normal sclerae CARDIO: reg rate, S1/2 heard without m/g/r LUNGS: CTA bilaterally, no crackles, rales or wheezes, good diaphragmatic excursion ABD: soft, non-tender, non-distended, no rebound or guarding, +BS EXTREMITY: RP and DP palpable 2+ bilat, no LE swelling or edema, extremities are warm and well-perfused L thigh has softball sized ecchymotic swelling that is hard to touch with no fluctuance and cold from ice recently applied. L shoulder with very restricted ROM (see ortho for full ROM details.) NEURO: CN 2-12 grossly intact, sensation intact throughout MUSC: 5/5 strength throughout but this is somewhat limited based on limited ROM as above. SKIN: warm and dry and ecchymosis as above. Laboratory Results: 08/03/17 05:22 Red Blood Count 3.62, Mean Corpuscular Volume 92.3, Mean Corpuscular Hemoglobin 30.4, Mean Corpuscular Hemoglobin Concent 32.9, Mean Platelet Volume 10.1, Neutrophils (%) (Auto) 69.9, Lymphocytes (%) (Auto) 18.2, Monocytes (%) (Auto) 8.6, Eosinophils (%) (Auto) 2.4, Basophils (%) (Auto) 0.7, Neutrophils # (Auto) 3.19, Lymphocytes # (Auto) 0.83, Monocytes # (Auto) 0.39, Eosinophils # (Auto) 0.11, Basophils # (Auto) 0.03 08/03/17 05:22 Test 08/02/17 17:53 08/02/17 19:40 9/5/17 05:22 Activated Partial Thromboplast Time 31.8 SECONDS (21.0-31.0) Partial Thromboplastin Ratio 1.2 Magnesium Level 2.2 mg/dl (1.8-2.4) Total Bilirubin 0.3 mg/dl (0.2-1) Direct Bilirubin < 0.1 mg/dl (0-0.2) Aspartate Amino Transf (AST/SGOT) 22 U/L (15-37) Alanine Aminotransferase (ALT/SGPT) 19 U/L (12-78) Alkaline Phosphatase 38 U/L (45-117) Total Protein 6.7 gm/dl (6.4-8.2) Albumin 3.6 gm/dl (3.4-5.0) Thyroid Stimulating Hormone (TSH) 0.848 uIu/ml (0.300-4.500) Urine Color YELLOW Urine Appearance CLEAR (CLEAR) Urine pH 7.0 (4.5-7.5) Urine Specific [place] 1.026 (1.000-1.030) Urine Protein NEG (NEG) Urine Glucose (UA) NEG (NEG) Urine Ketones NEG (NEG) Urine Occult Blood NEG (NEG) Urine Nitrite NEG (NEG) Urine Bilirubin NEG (NEG) Urine Urobilinogen NEG (NEG) Urine Leukocyte Esterase NEG (NEG) White Blood Count 4.56 K/uL (4.8-10.8) Red Blood Count 3.62 M/uL (4.2-5.4) Hemoglobin 11.0 g/dL (12.0-16.0) Hematocrit 33.4 % (37-47) Mean Corpuscular Volume 92.3 fL (80-100) Mean Corpuscular Hemoglobin 30.4 pg (25-34) Mean Corpuscular Hemoglobin Concent 32.9 g/dl (32-36) Platelet Count 221 K/uL (130-400) Mean Platelet Volume 10.1 fL (7.4-10.4) Neutrophils (%) (Auto) 69.9 % Lymphocytes (%) (Auto) 18.2 % Monocytes (%) (Auto) 8.6 % Eosinophils (%) (Auto) 2.4 % Basophils (%) (Auto) 0.7 % Neutrophils # (Auto) 3.19 K/uL (1.4-6.5) Lymphocytes # (Auto) 0.83 K/uL (1.2-3.4) Monocytes # (Auto) 0.39 K/uL (0.11-0.59) Eosinophils # (Auto) 0.11 K/uL (0-0.5) Basophils # (Auto) 0.03 K/uL (0-0.2) RDW Standard Deviation 47.8 fL (36.4-46.3) RDW Coefficient of Variation 14.1 % (11.5-14.5) Immature Granulocyte % (Auto) 0.2 % Immature Granulocyte # (Auto) 0.01 K/uL (0.00-0.02) Prothrombin Time 14.6 SECONDS (9.0-12.0) Prothromb Time International Ratio 1.3 (0.9-1.1) Anion Gap 5.0 mmol/L (3-11) Est Creatinine Clear Calc Drug Dose 77.0 ml/min Estimated GFR () 106.0 Estimated GFR (Non- 91.5 BUN/Creatinine Ratio 31.3 (10-20) Calcium Level 8.1 mg/dl (8.5-10.1) Last 24 Hours Test 08/02/17 17:53 08/02/17 19:40 08/02/17 21:22 08/03/17 05:22 White Blood Count 8.52 K/uL 4.56 K/uL Red Blood Count 3.98 M/uL 3.62 M/uL Hemoglobin 13.0 g/dL 11.4 g/dL 11.0 g/dL Hematocrit 36.8 % 33.6 % 33.4 % Mean Corpuscular Volume 92.5 fL 92.3 fL Mean Corpuscular Hemoglobin 32.7 pg 30.4 pg Mean Corpuscular Hemoglobin Concent 35.3 g/dl 32.9 g/dl Platelet Count 256 K/uL 221 K/uL Mean Platelet Volume 9.9 fL 10.1 fL Neutrophils (%) (Auto) 83.9 % 69.9 % Lymphocytes (%) (Auto) 10.1 % 18.2 % Monocytes (%) (Auto) 4.7 % 8.6 % Eosinophils (%) (Auto) 0.9 % 2.4 % Basophils (%) (Auto) 0.2 % 0.7 % Neutrophils # (Auto) 7.14 K/uL 3.19 K/uL Lymphocytes # (Auto) 0.86 K/uL 0.83 K/uL Monocytes # (Auto) 0.40 K/uL 0.39 K/uL Eosinophils # (Auto) 0.08 K/uL 0.11 K/uL Basophils # (Auto) 0.02 K/uL 0.03 K/uL RDW Standard Deviation 48.2 fL 47.8 fL RDW Coefficient of Variation 14.1 % 14.1 % Immature Granulocyte % (Auto) 0.2 % 0.2 % Immature Granulocyte # (Auto) 0.02 K/uL 0.01 K/uL Prothrombin Time 19.1 SECONDS 14.6 SECONDS Prothromb Time International Ratio 1.7 1.3 Activated Partial Thromboplast Time 31.8 SECONDS Partial Thromboplastin Ratio 1.2 Sodium Level 135 mmol/L 135 mmol/L 139 mmol/L Potassium Level 3.8 mmol/L 3.6 mmol/L Chloride Level 99 mmol/L 104 mmol/L Carbon Dioxide Level 30 mmol/L 30 mmol/L Anion Gap 6.0 mmol/L 5.0 mmol/L Blood Urea Nitrogen 20 mg/dl 16 mg/dl Creatinine 0.76 mg/dl 0.51 mg/dl Est Creatinine Clear Calc Drug Dose 51.6 ml/min 77.0 ml/min Estimated GFR () 86.5 106.0 Estimated GFR (Non- 74.6 91.5 BUN/Creatinine Ratio 26.6 31.3 Random Glucose 112 mg/dl 105 mg/dl Calcium Level 9.3 mg/dl 8.1 mg/dl Magnesium Level 2.2 mg/dl Total Bilirubin 0.3 mg/dl Direct Bilirubin < 0.1 mg/dl Aspartate Amino Transf (AST/SGOT) 22 U/L Alanine Aminotransferase (ALT/SGPT) 19 U/L Alkaline Phosphatase 38 U/L Total Protein 6.7 gm/dl Albumin 3.6 gm/dl Thyroid Stimulating Hormone (TSH) 0.848 uIu/ml Urine Color YELLOW Urine Appearance CLEAR Urine pH 7.0 Urine Specific [place] 1.026 Urine Protein NEG Urine Glucose (UA) NEG Urine Ketones NEG Urine Occult Blood NEG Urine Nitrite NEG Urine Bilirubin NEG Urine Urobilinogen NEG Urine Leukocyte Esterase NEG Assessment & Plan 81 yo F on coumadin for atrial fibrillation who presents with an acute leg hematoma after mechanical fall. 1. Mechanical fall with subsequent hematoma of L anterior thigh. Coumadin was reversed with vitamin K and ortho has evaluated; no signs of compartment syndrome at this time. Pain is controlled with current medication. Cont off coumadin at this time. Also cont holding fish oil, tumeric. 2. Ambulatory dysfunction at baseline-PT/OT to evaluate; this was ordered by Ortho team already. 3. PAF-sinus rhythm on admission EKG. No rate or rhythm control as outpatient. 4. L shoulder pain s/p fall yesterday-decreased ROM on exam which patient states is more decreased than her baseline. Per ortho exam, this is relatively stable. Will cont to watch as she evolves with time away from injury and cont RICE therapy and PT over the next 1-2 days. 5. Chronic constipation-pt asks for Metamucil which she takes at home. I also suggested daily Miralax while on narcotics and she is in agreement with this, also. 6. HTN-controlled. Cont Norvasc and Valsartan. Held Diovan HCT 160/25 on admission. 7. Hypomagnesemia-Mg supplementation held on admission. Will restart this now and will recheck with am labs. 8. Acute blood loss anemia-cont to monitor. DVT [id number] a conversation about the importance of wearing these, and she verbalizd understanding with intent to comply. Chemoprophylaxis is contraindicated. Full Code Dispo-cont med/surg for 1-2 more days. Pending PT/OT evaluation. DO Juventino Rubiost. [facility] Hospitalist Continued [facility] stay due to: ambulation difficulties Discharge planning: uncertain Consultants: Ortho Vascular Surgery Current Inpatient Medications: Current Inpatient Medications Medications (Trade) Dose Ordered Sig/Marc Route Start Time Stop Time Status Last Admin Dose Admin Ioversol (Optiray 320) 100 ml UD PRN IV 08/02/17 19:00 08/06/17 18:59 Acetaminophen (Tylenol Tab) 650 mg Q4H PRN PO 08/02/17 21:00 09/01/17 20:59 Amlodipine Besylate (Norvasc Tab) 2.5 mg QAM PO 08/03/17 09:00 09/02/17 08:59 08/03/17 09:15 2.5 MG Brimonidine Tartrate (Alphagan-P 0.15% Oph Soln) 1 drops BID OPL 08/02/17 21:00 09/01/17 20:59 9/5/17 09:13 1 DROPS Cetirizine HCl (zyrTEC TAB) 10 mg DAILY PRN PO 08/03/17 09:00 09/02/17 08:59 Fluoxetine HCl (Prozac Cap) 20 mg DAILY PO 08/03/17 09:00 09/02/17 08:59 08/03/17 09:14 20 MG Latanoprost (Xalatan Oph Soln) 1 drops HS OPB 08/02/17 21:00 09/01/17 20:59 08/02/17 22:17 1 DROPS Multivitamins (Multivitamin Tab) 1 tab DAILY PO 08/03/17 09:00 09/02/17 08:59 08/03/17 09:16 1 TAB Pantoprazole Sodium (Protonix Tab) 40 mg QAM PO 08/03/17 09:00 09/02/17 08:59 08/03/17 09:16 40 MG Valsartan (Diovan Tab) 160 mg QAM PO 08/03/17 09:00 09/02/17 08:59 08/03/17 09:15 160 MG Tramadol HCl (Ultram Tab) not relieved by tylenol @ Q6H PRN PO 08/02/17 21:00 09/01/17 20:59 08/03/17 06:39 50 MG Ondansetron HCl (Zofran Inj) 4 mg Q6H PRN IV 08/02/17 21:00 09/01/17 20:59 Hydromorphone HCl (Dilaudid Inj) 0.5 mg Q3H PRN IV 08/02/17 21:00 08/16/17 20:59 Oxycodone/ Acetaminophen (Percocet 5-325mg Tab) 1 tab Q6H PRN PO 08/02/17 21:00 08/16/17 20:59 08/03/17 09:19 1 TAB
[2017-08-03 15:21] VITALS: BP 108/70; PULSE 65; TEMP 36.5; O2SAT 95
--- NOTE | 2017-08-03 16:01 | CONSULTATION REPORT ---
DATE OF CONSULTATION: 08/03/2017 HISTORY OF PRESENT ILLNESS: The patient is a 81-year-old white female who presents after having had a fall, sustaining injury to her left shoulder and left superolateral thigh. She has a hematoma, measuring approximately 20 x 20 cm involving her left anterolateral thigh. No pain in her knee or hip. She has had previous bilateral total knee arthroplasty by Dr. Alston as well as a total hip arthroplasty by Dr. Alston. She has had previous bilateral reverse shoulder replacements and left shoulder replacement done by Dr. Soliman in 2011. She presents with new onset weakness of her left shoulder after having had a fall. X-rays revealed evidence of a total shoulder arthroplasty to be in satisfactory alignment and position. No evidence of new fracture was noted. X-rays were compared to previous x-rays and there was not noted to be any displacement or abnormalities noted. I will discuss with Dr. Soliman. She has probably had further soft tissue cuff compromise with a fall, which is leading to the shoulder weakness. We will start some physical therapy. I will discuss the case with Dr. Soliman as well. ASSESSMENT: New onset weakness with a reverse shoulder status post fall and hematoma, left anterolateral thigh.
[2017-08-03] MEDS: POLYETHYLENE (MIRALAX) 17 GM PACK PO SCH (16:41)
[2017-08-03] MEDS: LATANOPROST 0.005% OP SOLN 2.5 ML BTL OPB SCH (21:26)
[2017-08-03 22:50] VITALS: BP 99/61; PULSE 65; TEMP 36.4; O2SAT 96
[2017-08-04] MEDS: OXYCODONE/ACETAMINOPHEN 5-325 TAB PO PRN ×3 (00:08→15:39)
[2017-08-04] MEDS: TRAMADOL HCL 50 MG TAB PO PRN ×3 (05:35→23:58)
[2017-08-04 07:28] LABS: BASO % 0.5 %; BASO ABS # 0.02 K/uL (0-0.2); COMPLETE YES; EOS % 2.8 %; IG% 0.3 %; LYMPH % 20.4 %; LYMPH ABS # 0.81 K/uL (1.2-3.4); MEAN CELL VOLUME 93.2 fL (80-100); MEAN CORPUSCULAR HEMOGLOBIN 31.6 pg (25-34); MEAN CORPUSCULAR HGB CONC 33.9 g/dl (32-36); PLATELET COUNT 216 K/uL (130-400); RED BLOOD COUNT 3.54 M/uL (4.2-5.4); WHITE BLOOD COUNT 3.98 K/uL (4.8-10.8)
[2017-08-04 07:40] VITALS: BP 122/76; PULSE 63; TEMP 36.5; O2SAT 97
[2017-08-04 07:48] LABS: INR 1.1 (0.9-1.1); PROTHROMBIN TIME (PATIENT) 11.4 SECONDS (9.0-12.0)
[2017-08-04 07:56] LABS: BUN/CREATININE RATIO 28.3 (10-20); CALCIUM 8.6 mg/dl (8.5-10.1); CREATININE 0.6 mg/dl (0.60-1.20)
[2017-08-04] MEDS: BRIMONIDINE TARTRATE-P 0.15% 5 ML BTL OPL SCH ×2 (08:54→20:34)
[2017-08-04] MEDS: MAGNESIUM OXIDE 400 MG TAB PO SCH (08:55)
[2017-08-04] MEDS: AMLODIPINE BESYLATE 5 MG TAB PO SCH (08:57)
[2017-08-04] MEDS: MULTIVITAMIN TAB PO SCH (08:57)
[2017-08-04] MEDS: PANTOprazole SOD 40 MG TAB PO SCH (08:57)
[2017-08-04] MEDS: VALSARTAN 80 MG TAB PO SCH (08:58)
[2017-08-04] MEDS: FLUOXETINE HCL 20 MG CAP PO SCH (08:58)
[2017-08-04] MEDS: PSYLLIUM 58.6% PWD PACK S\\F PO SCH (08:58)
[2017-08-04] MEDS: POLYETHYLENE (MIRALAX) 17 GM PACK PO SCH (08:59)
[2017-08-04] MEDS ORDERED: BISACODYL 10 MG SUPP PR PRN (15:30)
[2017-08-04] MEDS ORDERED: MAGNESIUM HYDROXIDE SUSP 30 ML UDC PO PRN (15:30)
[2017-08-04 15:45] VITALS: BP 103/65; PULSE 69; TEMP 36.6; O2SAT 98
--- NOTE | 2017-08-04 15:48 | Progress Note ---
Orthopedic SOAP Note Subjective Date of Service: Aug 04, 2017. Additional Notes: notes decrease shoulder function from pre-fall status Problem List Medical Problems: (1) Anticoagulated Status: Acute (2) Extravasation of blood Status: Acute (3) Hematoma of left thigh Status: Acute Objective hematoma thigh , neurologically intact ,able to do a straight leg raise left leg , unable to raise shoulder , swelling c/w intraarticular fluid, able to abduct rm to 30 degrees bur only flex 20 degrees. no ecchymosis Date Time Temp Pulse Resp B/P (MAP) Pulse Ox O2 Delivery O2 Flow Rate FiO2 08/04/17 07:40 36.5 63 18 122/76 (91) 97 Room Air 08/04/17 07:30 Room Air 08/04/17 00:00 Room Air 08/03/17 22:50 36.4 65 16 99/61 (74) 96 Room Air 08/03/17 16:20 Room Air Laboratory Results 24 Hours: Test 08/04/17 07:09 White Blood Count 3.98 K/uL Red Blood Count 3.54 M/uL Hemoglobin 11.2 g/dL Hematocrit 33.0 % Mean Corpuscular Volume 93.2 fL Mean Corpuscular Hemoglobin 31.6 pg Mean Corpuscular Hemoglobin Concent 33.9 g/dl Platelet Count 216 K/uL Mean Platelet Volume 10.0 fL Neutrophils (%) (Auto) 67.0 % Lymphocytes (%) (Auto) 20.4 % Monocytes (%) (Auto) 9.0 % Eosinophils (%) (Auto) 2.8 % Basophils (%) (Auto) 0.5 % Neutrophils # (Auto) 2.67 K/uL Lymphocytes # (Auto) 0.81 K/uL Monocytes # (Auto) 0.36 K/uL Eosinophils # (Auto) 0.11 K/uL Basophils # (Auto) 0.02 K/uL Prothromb Time International Ratio 1.1 Prothrombin Time 11.4 SECONDS Assessment Hematoma Left Thigh; Left Shoulder Pain s/p Fall on chronic Coumadin Therapy.xrays unchanged from office xrays last taken, 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 Plan heat ice contrast to thigh and shoulder and gentle rom to shoulder and ambulate as tolerated.
--- NOTE | 2017-08-04 17:32 | Progress Note ---
Medicine Progress Note Date & Time of Visit: Aug 04, 2017 at 14:00. Subjective tolerating PO denies pain ROM still significantly restricted in L shoulder-Ortho to evaluate progressing with PT no evidence of further bleeding daughter is at bedside and states that mom falls frequently at home-we discussed multiple causes for this and made recommendations to both have PCP consider causes as outpatient and seriously consider the benefits vs dangers of restarting her coumadin again as outpatient in a week or so. Objective Last 8 Hrs Date Time Temp Pulse Resp B/P (MAP) Pulse Ox O2 Delivery O2 Flow Rate FiO2 08/04/17 15:45 36.6 69 16 103/65 (78) 98 Room Air Physical Exam: GEN: WNWD, in no acute distress, alert and appropriate HEENT: NC/AT, pupils are equal and round bilaterally, normal sclerae CARDIO: reg rate, S1/2 heard without m/g/r LUNGS: CTA bilaterally, no crackles, rales or wheezes, good diaphragmatic excursion ABD: soft, non-tender, non-distended, no rebound or guarding, +BS EXTREMITY: RP and DP palpable 2+ bilat, no LE swelling or edema, extremities are warm and well-perfused L thigh has softball sized ecchymotic swelling that is softer to palpation today than yesterday with no fluctuance and warm from heat recently applied L shoulder with very restricted ROM (see ortho for full ROM details.) NEURO: CN 2-12 grossly intact, sensation intact throughout MUSC: 5/5 strength throughout but this is somewhat limited based on limited ROM as above. SKIN: warm and dry and ecchymosis as above. Laboratory Results: 08/04/17 07:09 Red Blood Count 3.54, Mean Corpuscular Volume 93.2, Mean Corpuscular Hemoglobin 31.6, Mean Corpuscular Hemoglobin Concent 33.9, Mean Platelet Volume 10.0, Neutrophils (%) (Auto) 67.0, Lymphocytes (%) (Auto) 20.4, Monocytes (%) (Auto) 9.0, Eosinophils (%) (Auto) 2.8, Basophils (%) (Auto) 0.5, Neutrophils # (Auto) 2.67, Lymphocytes # (Auto) 0.81, Monocytes # (Auto) 0.36, Eosinophils # (Auto) 0.11, Basophils # (Auto) 0.02 08/04/17 07:09 Test 08/02/17 17:53 08/02/17 19:40 08/04/17 07:09 Activated Partial Thromboplast Time 31.8 SECONDS (21.0-31.0) Partial Thromboplastin Ratio 1.2 Total Bilirubin 0.3 mg/dl (0.2-1) Direct Bilirubin < 0.1 mg/dl (0-0.2) Aspartate Amino Transf (AST/SGOT) 22 U/L (15-37) Alanine Aminotransferase (ALT/SGPT) 19 U/L (12-78) Alkaline Phosphatase 38 U/L (45-117) Total Protein 6.7 gm/dl (6.4-8.2) Albumin 3.6 gm/dl (3.4-5.0) Thyroid Stimulating Hormone (TSH) 0.848 uIu/ml (0.300-4.500) Urine Color YELLOW Urine Appearance CLEAR (CLEAR) Urine pH 7.0 (4.5-7.5) Urine Specific [place] 1.026 (1.000-1.030) Urine Protein NEG (NEG) Urine Glucose (UA) NEG (NEG) Urine Ketones NEG (NEG) Urine Occult Blood NEG (NEG) Urine Nitrite NEG (NEG) Urine Bilirubin NEG (NEG) Urine Urobilinogen NEG (NEG) Urine Leukocyte Esterase NEG (NEG) White Blood Count 3.98 K/uL (4.8-10.8) Red Blood Count 3.54 M/uL (4.2-5.4) Hemoglobin 11.2 g/dL (12.0-16.0) Hematocrit 33.0 % (37-47) Mean Corpuscular Volume 93.2 fL (80-100) Mean Corpuscular Hemoglobin 31.6 pg (25-34) Mean Corpuscular Hemoglobin Concent 33.9 g/dl (32-36) Platelet Count 216 K/uL (130-400) Mean Platelet Volume 10.0 fL (7.4-10.4) Neutrophils (%) (Auto) 67.0 % Lymphocytes (%) (Auto) 20.4 % Monocytes (%) (Auto) 9.0 % Eosinophils (%) (Auto) 2.8 % Basophils (%) (Auto) 0.5 % Neutrophils # (Auto) 2.67 K/uL (1.4-6.5) Lymphocytes # (Auto) 0.81 K/uL (1.2-3.4) Monocytes # (Auto) 0.36 K/uL (0.11-0.59) Eosinophils # (Auto) 0.11 K/uL (0-0.5) Basophils # (Auto) 0.02 K/uL (0-0.2) RDW Standard Deviation 48.4 fL (36.4-46.3) RDW Coefficient of Variation 14.1 % (11.5-14.5) Immature Granulocyte % (Auto) 0.3 % Immature Granulocyte # (Auto) 0.01 K/uL (0.00-0.02) Prothrombin Time 11.4 SECONDS (9.0-12.0) Prothromb Time International Ratio 1.1 (0.9-1.1) Anion Gap 4.0 mmol/L (3-11) Est Creatinine Clear Calc Drug Dose 65.4 ml/min Estimated GFR () 100.5 Estimated GFR (Non- 86.7 BUN/Creatinine Ratio 28.3 (10-20) Calcium Level 8.6 mg/dl (8.5-10.1) Magnesium Level 2.2 mg/dl (1.8-2.4) Last 24 Hours Test 08/04/17 07:09 White Blood Count 3.98 K/uL Red Blood Count 3.54 M/uL Hemoglobin 11.2 g/dL Hematocrit 33.0 % Mean Corpuscular Volume 93.2 fL Mean Corpuscular Hemoglobin 31.6 pg Mean Corpuscular Hemoglobin Concent 33.9 g/dl Platelet Count 216 K/uL Mean Platelet Volume 10.0 fL Neutrophils (%) (Auto) 67.0 % Lymphocytes (%) (Auto) 20.4 % Monocytes (%) (Auto) 9.0 % Eosinophils (%) (Auto) 2.8 % Basophils (%) (Auto) 0.5 % Neutrophils # (Auto) 2.67 K/uL Lymphocytes # (Auto) 0.81 K/uL Monocytes # (Auto) 0.36 K/uL Eosinophils # (Auto) 0.11 K/uL Basophils # (Auto) 0.02 K/uL RDW Standard Deviation 48.4 fL RDW Coefficient of Variation 14.1 % Immature Granulocyte % (Auto) 0.3 % Immature Granulocyte # (Auto) 0.01 K/uL Prothrombin Time 11.4 SECONDS Prothromb Time International Ratio 1.1 Sodium Level 137 mmol/L Potassium Level 4.0 mmol/L Chloride Level 101 mmol/L Carbon Dioxide Level 32 mmol/L Anion Gap 4.0 mmol/L Blood Urea Nitrogen 17 mg/dl Creatinine 0.60 mg/dl Est Creatinine Clear Calc Drug Dose 65.4 ml/min Estimated GFR () 100.5 Estimated GFR (Non- 86.7 BUN/Creatinine Ratio 28.3 Random Glucose 95 mg/dl Calcium Level 8.6 mg/dl Magnesium Level 2.2 mg/dl Assessment & Plan 81 yo F on coumadin for atrial fibrillation who presents with an acute leg hematoma after mechanical fall. 1. Mechanical fall with subsequent hematoma of L anterior thigh. Coumadin was reversed with vitamin K and ortho has evaluated; no signs of compartment syndrome at this time. Today she continues to improve and hematoma has softened somewhat with signs of healing. Pain is controlled with current medication. Cont off coumadin at this time. Also cont holding fish oil, tumeric. 2. New onset weakness with a reverse shoulder status post fall with decreased ROM-poss soft tissue injury per Ortho--for now cont conservative management with PT and pain control. 3. Ambulatory dysfunction at baseline with multiple falls reported at home per daughter. -cont PT/OT evals, appreciate recs for going home. Of note, these multiple falls are concerning on coumadin. Discussed with the daughter to have a family discussion w patient and PCP or [employer] regarding the appropriateness of restarting this as outpatient in this setting. 4. PAF-sinus rhythm on admission EKG. No rate or rhythm control as outpatient. Continues in sinus rhythm on exam today. 5. Chronic constipation-pt asks for Metamucil which she takes at home. Declined Miralax so ordered milk of magnesia prn and suppository PRN. 6. HTN-controlled. Cont Norvasc and Valsartan. Held Diovan HCT 160/25 on admission. 7. Hypomagnesemia-Mg supplementation held on admission. This was restarted and Mg levels are normal. 8. Acute blood loss anemia-stable no further evidence of decline or persistent bleeding. DVT [id number] a conversation about the importance of wearing these, and she verbalized understanding with intent to comply. Chemoprophylaxis is contraindicated. Full Code Dispo-poss DC tomorrow? Pending PT/OT eval/recs. DO [facility] Continued [facility] stay due to: ambulation difficulties Discharge planning: uncertain Consultants: Ortho PT/OT Current Inpatient Medications: Current Inpatient Medications Medications (Trade) Dose Ordered Sig/Marc Route Start Time Stop Time Status Last Admin Dose Admin Ioversol (Optiray 320) 100 ml UD PRN IV 08/02/17 19:00 08/06/17 18:59 Acetaminophen (Tylenol Tab) 650 mg Q4H PRN PO 08/02/17 21:00 09/01/17 20:59 Amlodipine Besylate (Norvasc Tab) 2.5 mg QAM PO 08/03/17 09:00 09/02/17 08:59 08/04/17 08:57 2.5 MG Brimonidine Tartrate (Alphagan-P 0.15% Oph Soln) 1 drops BID OPL 08/02/17 21:00 09/01/17 20:59 08/04/17 08:54 1 DROPS Cetirizine HCl (zyrTEC TAB) 10 mg DAILY PRN PO 08/03/17 09:00 09/02/17 08:59 Fluoxetine HCl (Prozac Cap) 20 mg DAILY PO 08/03/17 09:00 09/02/17 08:59 08/04/17 08:58 20 MG Latanoprost (Xalatan Oph Soln) 1 drops HS OPB 08/02/17 21:00 09/01/17 20:59 08/03/17 21:26 1 DROPS Multivitamins (Multivitamin Tab) 1 tab DAILY PO 08/03/17 09:00 09/02/17 08:59 08/04/17 08:57 1 TAB Pantoprazole Sodium (Protonix Tab) 40 mg QAM PO 08/03/17 09:00 09/02/17 08:59 08/04/17 08:57 40 MG Valsartan (Diovan Tab) 160 mg QAM PO 08/03/17 09:00 09/02/17 08:59 08/04/17 08:58 160 MG Tramadol HCl (Ultram Tab) not relieved by tylenol @ Q6H PRN PO 08/02/17 21:00 09/01/17 20:59 08/04/17 13:07 50 MG Ondansetron HCl (Zofran Inj) 4 mg Q6H PRN IV 08/02/17 21:00 09/01/17 20:59 Hydromorphone HCl (Dilaudid Inj) 0.5 mg Q3H PRN IV 08/02/17 21:00 08/16/17 20:59 Oxycodone/ Acetaminophen (Percocet 5-325mg Tab) 1 tab Q6H PRN PO 08/02/17 21:00 08/16/17 20:59 08/04/17 15:39 1 TAB Psyllium Hydrophilic Mucilloid (Metamucil Powder) 1 pkt QAM PO 08/04/17 09:00 09/03/17 08:59 08/04/17 08:58 1 PKT Polyethylene (Miralax Powder Packet) 17 gm DAILY PO 08/03/17 15:00 09/02/17 14:59 08/03/17 16:41 17 GM Magnesium Oxide (Mag-Ox Tab) 400 mg DAILY PO 08/04/17 09:00 09/03/17 08:59 08/04/17 08:55 400 MG Magnesium Hydroxide (Milk Of Magnesia Susp) 30 ml Q6H PRN PO 08/04/17 15:30 09/03/17 15:29 08/04/17 16:23 30 ML Bisacodyl (Dulcolax Supp) 10 mg DAILY PRN LA 08/04/17 15:30 09/03/17 15:29
[2017-08-04] MEDS: LATANOPROST 0.005% OP SOLN 2.5 ML BTL OPB SCH (20:34)
[2017-08-04 23:05] VITALS: BP 113/66; PULSE 70; TEMP 36.6; O2SAT 93
[2017-08-05 07:16] VITALS: BP 126/76; PULSE 61; TEMP 36.7; O2SAT 94
[2017-08-05] MEDS: BRIMONIDINE TARTRATE-P 0.15% 5 ML BTL OPL SCH (09:38)
[2017-08-05] MEDS: PSYLLIUM 58.6% PWD PACK S\\F PO SCH (09:40)
[2017-08-05] MEDS: VALSARTAN 80 MG TAB PO SCH (09:40)
[2017-08-05] MEDS: AMLODIPINE BESYLATE 5 MG TAB PO SCH (09:41)
[2017-08-05] MEDS: FLUOXETINE HCL 20 MG CAP PO SCH (09:41)
[2017-08-05] MEDS: MULTIVITAMIN TAB PO SCH (09:41)
[2017-08-05] MEDS: POLYETHYLENE (MIRALAX) 17 GM PACK PO SCH (09:41)
[2017-08-05] MEDS: MAGNESIUM OXIDE 400 MG TAB PO SCH (09:41)
[2017-08-05] MEDS: PANTOprazole SOD 40 MG TAB PO SCH (09:42)
--- NOTE | 2017-08-05 12:01 | Discharge Instructions ---
Discharge Instructions Date of Service Aug 05, 2017. Admission Reason for Admission: Hematoma Discharge Discharge Diagnosis / Problem: Hematoma, L shoulder sprain Discharge Goals Goal(s): Prevent Disease Progression Activity Recommendations Activity Limitations: per Instructions/Follow-up section . Instructions / Follow-Up Instructions / Follow-Up Please take all medications as instructed. Please continue to hold coumadin until after having a discussion with primary care physician or your [employer] regarding the appropriateness of restarting this in the setting of multiple falls at home. You will be going home with Home Health nursing for continued physical therapy for your shoulder and legs. This can be continued or increased by your primary care provider as needed. You have an appointment with Amber Gomez PA-C at your primary care office on 08/12 @1:15pm for follow-up from this hospitalization. Please ensure you bring all documentation from discharge with you to this appointment. It was a pleasure taking care of you! Call if you have any questions or problems. You can reach a [facility] hospitalist on duty at 24 hours a day by calling [phone]. Take care of yourself. Amanda Hastings DO [facility] Hospitalist Current Hospital Diet Patient's current hospital diet: AHA Diet (Heart Healthy) Discharge Diet Recommended Diet: AHA Diet (Heart Healthy) Pending Studies Studies pending at discharge: no Medical Emergencies . Who to Call and When: Medical Emergencies: If at any time you feel your situation is an emergency, please call 911 immediately. . Non-Emergent Contact Non-Emergency issues call your: Primary Care Provider . . "Provider Documentation" section prepared by Amanda Hastings. . VTE Core Measure Inpt VTE Proph given/why not?: Contraindicated
--- NOTE | 2017-08-05 12:16 | Discharge Summary ---
Discharge Summary Date of Service Aug 05, 2017. Discharge Summary Admission Date: Aug 02, 2017 at 20:15 Discharge Date: Aug 05, 2017 Discharge Disposition: Home with services Principal Diagnosis: s/p Mechanical fall while on coumadin Traumatic hematoma L thigh Traumatic L shoulder sprain w reduced ROM Ambulatory dysfunction PAF Chronic constipation HTN Hypomagnesemia Acute blood loss anemia Procedures: None. Vaccinations: None. Consultations: Ortho PT/OT Pending Studies/Follow-Up: see instructions below. Medication Reconciliation Continued Medications: Amlodipine (Norvasc) 2.5 Mg Tab 2.5 MG PO QAM Apple Cider Vinegar (Apple Cider Vinegar) 500 Mg Tab 500 MG PO DAILY Brimonidine Tartrate (Brimonidine Tartrate) 0.15 % Linda 1 DROP OPL BID, #5 Cetirizine (Zyrtec) 10 Mg Tab 10 MG PO PRN Esomeprazole Magnesium (Nexium) 40 Mg Capcr 40 MG PO DAILY, 0 Refills Fish Oil ([place]-3) 1 Ea Cap 2 CAPSULES PO DAILY, 0 Refills Fluoxetine (Prozac) 20 Mg Cap 20 MG PO DAILY, 0 Refills Ibandronate Sodium (Boniva) 150 Mg Tab 150 MG PO MONTHLY Latanoprost (Latanoprost) 37 Drops/2.5 Ml Soln 1 DROP OPB HS, #3 Magnesium Oxide (Mag-Ox) 400 Mg Tab 400 MG PO DAILY, 0 Refills Multivitamin (Multivitamin) Tab 1 TAB PO DAILY, 0 Refills Valsartan/Hctz (Diovan Hct 160MG/25MG) 1 Tab Tab 1 TAB PO QAM, #90 Discontinued Medications: Turmeric (Curcuma Longa) (Turmeric) 500 Mg Cap 500 MG PO BID Warfarin Sodium (Coumadin) 5 Mg Tab 5 MG PO UD PER INR FROM [facility] Admission Information HPI (per Admitting provider): HISTORY OF PRESENT ILLNESS: History obtained from patient and records. Medical history significant for paroxysmal atrial fibrillation, on Coumadin, hypertension, hyperlipidemia, GERD, arthritis. Recent confinement under Orthopedics service last 02/2012 for a left shoulder surgery. Today, the patient was at a family picnic, had a mechanical fall landing on her left side. Achy, left shoulder pain and left leg pain painful swelling. Some posterior head trauma. No loss of consciousness. As per family, the patient known to fall at home if she moves too fast. Brought to the Emergency Room. Patient received vitamin K in the ER. Physical Exam (per Admitting): PHYSICAL EXAMINATION: VITAL SIGNS: Blood pressure was noted to be 134/85, pulse 86, RR 18, temperature 36.6, sats 96% on room air. GENERAL: Pleasant, no respiratory distress. SKIN: Normal color. HEENT: [place] palpebral conjunctivae. Dry mucosa. NECK: No JVD. Supple. CHEST: Decreased breath sounds. HEART: Regular rate and rhythm. ABDOMEN: Soft. EXTREMITIES: Tenderness on the left upper thigh; note of compressive dressing; Left shoulder ROM limited by pain NEUROLOGIC: No gross focality. Hospital Course 81 yo F on coumadin for atrial fibrillation who presents with an acute leg hematoma after mechanical fall. 1. Mechanical fall with subsequent hematoma of L anterior thigh. Coumadin was reversed with vitamin K and ortho has evaluated; no signs of compartment syndrome at this time. Today she continues to improve and hematoma has softened somewhat with signs of healing. Pain is controlled with current medication. Cont off coumadin at this time. Also cont holding fish oil, tumeric. 2. New onset weakness with a reverse shoulder status post fall with decreased ROM-poss soft tissue injury per Ortho--for now cont conservative management with PT and pain control. 3. Ambulatory dysfunction at baseline with multiple falls reported at home per daughter. -per PT eval she is ok to return home. Of note, these multiple falls are concerning on coumadin. Discussed with the daughter to have a family discussion w patient and PCP or Telephonic Nurse regarding the appropriateness of restarting this as outpatient in this setting. 4. PAF-sinus rhythm on admission EKG. No rate or rhythm control as outpatient. Continues in sinus rhythm on exam today. 5. Chronic constipation-pt asks for Metamucil which she takes at home. Declined Miralax so ordered milk of magnesia prn and suppository PRN. 6. HTN-controlled. Cont Norvasc and Valsartan. Held Diovan HCT 160/25 on admission. 7. Hypomagnesemia-Mg supplementation held on admission. This was restarted and Mg levels are normal. 8. Acute blood loss anemia-stable no further evidence of decline or persistent bleeding. DVT [id number] a conversation about the importance of wearing these, and she verbalized understanding with intent to comply. Chemoprophylaxis is contraindicated. On day of discharge she was afebrile and hemodynamically stable. Her physical exam was unremarkable aside from the healing hematoma in her Left upper thigh and her severely restricted L shoulder range of motion. She was discharged in stable condition with close follow-up with PCP. Home Health was ordered at discharge for continued physical therapy post-discharge. DO Pilo Rubio Total time spent on discharge = 60 minutes This includes examination of the patient, discharge planning, medication reconciliation, and communication with other providers. Discharge Instructions [facility] [address] [place] [address] Discharge Medical Patient Name: Tori Fuentes Unit Number: [id number] Date of : 1935 Patient Status: Admitted Inpatient Attending Doctor: Amanda Hastings DO DI: Medical v4 Discharge Instructions Date of Service Aug 05, 2017. Admission Reason for Admission: Hematoma Discharge Discharge Diagnosis / Problem: Hematoma, L shoulder sprain Discharge Goals Goal(s): Prevent Disease Progression Activity Recommendations Activity Limitations: per Instructions/Follow-up section . Instructions / Follow-Up Instructions / Follow-Up Please take all medications as instructed. Please continue to hold coumadin until after having a discussion with primary care physician or your Telephonic Nurse regarding the appropriateness of restarting this in the setting of multiple falls at home. You will be going home with Home Health nursing for continued physical therapy for your shoulder and legs. This can be continued or increased by your primary care provider as needed. You have an appointment with Amber Gomez PA-C at your primary care office on 08/12 @1:15pm for follow-up from this hospitalization. Please ensure you bring all documentation from discharge with you to this appointment. It was a pleasure taking care of you! Call if you have any questions or problems. You can reach a [facility] hospitalist on duty at [facility] 24 hours a day by calling [phone]. Take care of yourself. DO Pilo Rubioist Current Hospital Diet Patient's current hospital diet: AHA Diet (Heart Healthy) Discharge Diet Recommended Diet: AHA Diet (Heart Healthy) Pending Studies Studies pending at discharge: no Medical Emergencies . Who to Call and When: Medical Emergencies: If at any time you feel your situation is an emergency, please call 911 immediately. . Non-Emergent Contact Non-Emergency issues call your: Primary Care Provider . . "Provider Documentation" section prepared by Amanda Hastings. . VTE Core Measure Inpt VTE Proph given/why not?: Contraindicated Additional Copies To Amber Villa PA-C
[2017-08-05 13:40] VITALS: BP 126/76; PULSE 61; TEMP 36.7; O2SAT 94
== END 2017-08-05 16:00 | disposition home health service (06) | DRG 605 ==
LOC: C.EDB 17:17 → C.3E 20:15 → ENRESERV 20:43
PROVIDERS: ADMIT Hospitalist; ATTEND Hospitalist
DX: S70.12XA Contusion of left thigh, initial encounter (principal); D62 Acute posthemorrhagic anemia; W19.XXXA Unspecified fall, initial encounter; S43.402A Unspecified sprain of left shoulder joint, initial encounter; M25.612 Stiffness of left shoulder, not elsewhere classified; R26.9 Unspecified abnormalities of gait and mobility; I48.0 Paroxysmal atrial fibrillation; K59.09 Other constipation; I10 Essential (primary) hypertension; E83.42 Hypomagnesemia; R53.1 Weakness; J45.909 Unspecified asthma, uncomplicated; F32.9 Major depressive disorder, single episode, unspecified; E78.5 Hyperlipidemia, unspecified; K21.9 Gastro-esophageal reflux disease without esophagitis; M19.90 Unspecified osteoarthritis, unspecified site; Z96.653 Presence of artificial knee joint, bilateral; Z96.612 Presence of left artificial shoulder joint; Z96.611 Presence of right artificial shoulder joint; Z96.649 Presence of unspecified artificial hip joint; Z79.01 Long term (current) use of anticoagulants; Z79.899 Other long term (current) drug therapy; Z79.83 Long term (current) use of bisphosphonates